=== PATIENT | male | born 1995 | race Two or more races ===

== ENCOUNTER 2017-02-21 07:09 | Day surgery (SDC) | payer OTHER ==
[2017-02-18 15:32] VITALS: BMI 39.1
[2017-02-21] MEDS ORDERED: BUPIVACAINE HCL/PF 2.5 MG/ML - 30 ML VIAL IJ ONE (08:36)
[2017-02-21] MEDS ORDERED: ROCURONIUM BROMIDE 50 MG/5 ML VIAL ONE (08:42)
[2017-02-21] MEDS ORDERED: PROPOFOL 20 ML ONE ×4 (08:42)
[2017-02-21] MEDS ORDERED: LIDOCAINE HCL/PF 2% SDV 5ML VIAL ONE ×2 (08:42→09:18)
[2017-02-21] MEDS ORDERED: MIDAZOLAM HCL 2 MG/2 ML SINGLE DOSE VIAL ONE (08:42)
[2017-02-21] MEDS ORDERED: KETOROLAC TROMETHAMINE 30 MG/1 ML VIAL ONE (09:18)
[2017-02-21] MEDS ORDERED: ceFAZolin SODIUM 1 GM VIAL ONE (09:18)
[2017-02-21] MEDS ORDERED: DEXAMETHASONE SOD PHOSPHATE 4 MG/1 ML VIAL ONE (09:18)
[2017-02-21] MEDS ORDERED: ONDANSETRON 4 MG/2 ML VIAL ONE ×2 (09:18→09:56)
[2017-02-21] MEDS ORDERED: BUPIVACAINE HCL/PF 0.25% (2.5MG/ML) 10 ML VIAL IJ ONE (09:42)
[2017-02-21] MEDS ORDERED: ONDANSETRON 4 MG/2 ML VIAL IVPUSH PRN (10:00)
[2017-02-21] MEDS ORDERED: LACTATED RINGERS SOLUTION 1,000 ML IV SCH (10:00)
[2017-02-21] MEDS ORDERED: oxyCODONE HCL 5 MG TABLET PO PRN ×2 (10:00)
[2017-02-21] MEDS ORDERED: PROMETHAZINE HCL 25 MG/1 ML VIAL IVPUSH PRN (10:00)
[2017-02-21] MEDS ORDERED: oxyCODONE HCL 5 MG TABLET ONE (10:55)
[2017-02-21 13:20] VITALS: BP 136/78; PULSE 92
[2017-02-21 13:22] VITALS: TEMP 98.8
--- NOTE | 2017-02-24 14:56 | PATH ---
Surgical Pathology Report Patient Name: CASTRO DAVIS Med. Rec. #: [id number] /Age/Gender: 1995 (Age: 21) / M Account: [id number] Location: [facility] AMBULATORY Taken: 02/21/2017 Received: 02/21/2017 Reported: 02/24/2017 Physicians: Obi Santiago M.D. Specimen(s) Received LEFT KNEE SHAVINGS Clinical History Left knee internal derangement Final Diagnosis SOFT TISSUE, LEFT KNEE, ARTHROSCOPIC SHAVINGS: SYNOVIUM AND FIBROCARTILAGE WITH MYXOHYALINE DEGENERATION. Electronically Signed Alen Carmona M.D. Gross Description Received in formalin, labeled "left knee shavings" is a 2 cm in greatest dimension cm. aggregate of [place]-yellow soft tissue fragments. A customer operations representative portion is submitted in one cassette. [facility]/02/21/2017 [facility]/02/21/2017
--- NOTE | 2017-03-01 15:44 | OP ---
DATE OF OPERATION: 02/21/2017 PREOPERATIVE DIAGNOSES: 1. Left knee medial and lateral meniscal tears. 2. Left knee cartilage injury. 3. Left knee synovitis. POSTOPERATIVE DIAGNOSES: 1. Left knee medial and lateral meniscal tears. 2. Left knee cartilage injury. 3. Left knee synovitis. PROCEDURES PERFORMED: 1. Left knee arthroscopy with partial meniscectomy of the medial and lateral menisci. 2. Left knee arthroscopy with chondroplasty and abrasion-plasty. 3. Left knee arthroscopy with synovectomy (major). CPT code 63555, 59356, 88565. SURGEON: Tonya Correa MD TRAVEL REGISTERED NURSE NICU: ASHLIE Chawla FINDINGS: 1. Medial meniscus anterior horn tear, minor. 2. Lateral meniscus anterior horn tear of body extending to the anterior horn, anterior one-third undersurface extension. 3. Synovitis of the patellofemoral medial and lateral notch, most predominantly anteriorly. 4. cartilage injury medial femoral condyle with minor grade 1 to 2 changes of medial tibial plateau. 5. ACL and PCL intact. 6. Antegrade cartilage injury, lateral tibial plateau. 7. Minimal softening of cartilage of patella and patellofemoral trochlea. DESCRIPTION PROCEDURE: Informed consent was obtained. The patient was taken to the operating room where the left lower extremity was prepped and draped in a sterile fashion. A tourniquet was placed on the left upper thigh but not inflated. Using standard arthroscopic technique, a lateral incision and portal were made which allowed for introduction of the camera into the suprapatellar bursa. This was then taken to the medial joint line where under direct visualization, a medial incision and portal were made. Excessive synovium noted in the medial, lateral, patellofemoral and notch area was removed by the up-biting shaver and Bovie cautery. This was found to bring inflammatory tissue into the joint surface, a source of joint pain and dysfunction. Probing of the medial and lateral meniscus found tears described in the findings. These were removed with an up-biting shaver and taken back to a stable rim. Grade 2-3 degenerative changes were treated with chondroplasty, removing all flaking surfaces with low setting Bovie used along the periphery. Grade 4 changes were treated with abrasion-plasty. All areas of the knee were once again re-examined. The knee was then drained. A single suture was placed on all portals. Sterile dressing was placed. The patient was transferred to the recovery room. TONYA CORREA M.D. ANA [id number]
== END 2017-02-21 12:00 | disposition home or self-care (01) ==
LOC: FASU 07:09
PROVIDERS: ATTEND Orthopaedic Surgery
PROC: 0SBD4ZZ Excision of Left Knee Joint, Percutaneous Endoscopic Approach (ICD-10-PCS; 2017-02-21)
PROC: 0SBD4ZZ Excision of Left Knee Joint, Percutaneous Endoscopic Approach (ICD-10-PCS; 2017-02-21)
PROC: 0SBD4ZZ Excision of Left Knee Joint, Percutaneous Endoscopic Approach (ICD-10-PCS; principal; 2017-02-21 08:30)
DX: S83.242A Other tear of medial meniscus, current injury, left knee, initial encounter (principal); S83.282A Other tear of lateral meniscus, current injury, left knee, initial encounter; S83.8X2A Sprain of other specified parts of left knee, initial encounter; M65.862 Other synovitis and tenosynovitis, left lower leg; X58.XXXA Exposure to other specified factors, initial encounter; Y93.9 Activity, unspecified; Y92.9 Unspecified place or not applicable
CPT/HCPCS: 88304-TC; 94760